=== PATIENT | male | born 1945 | race Caucasian/White ===

== ENCOUNTER 2018-05-10 17:57 | Emergency (ER) | payer MEDICARE ==
[2018-05-10 19:15] LABS: #Basophils 0.1 thou/uL (0.0-0.2); #Monocytes 0.4 thou/uL (0.11-0.59); #Neutrophils 9.9 thou/uL (1.40-6.50); %Basophils 0.5 % (0.0-1.0); %Eosinophils 0.1 % (0.0-10.0); %Monocytes 3.1 % (0.0-10.0); %Neutrophils 87.3 % (42.0-75.0); Mean Corpuscular HGB CONC 32.5 g/dL (32.0-36.0); Mean Corpuscular Hemoglobin 28.5 pg (27.0-31.0); Mean Corpuscular Volume 87.8 fL (78.0-98.0); Mean Platelet Volume 8.2 fL (7.4-10.4); Platelet Count 362 thou/uL (130-400); Red Blood Cell (RBC) Count 4.92 mill/uL (4.70-6.10); White Blood Cell (WBC) Count 11.3 thou/uL (4.8-10.8)
[2018-05-10] MEDS ORDERED: cloNIDine 0.1 MG TAB ONE ×2 (19:31→20:40)
--- NOTE | 2018-05-10 19:37 | CT ---
CT BRAIN NONCONTRAST: DATE: 05/10/2018 TIME: 7:06 p.m. HISTORY: A 72-year-old male with dysarthria, paresthesia of the face, and weakness of the left upper extremity and left lower extremity. This stroke alert protocol report was called STAT by Dr. Luevano to Dr. Peterson at 7:14 p.m. on 9. COMPARISON: 01/16/2016 FINDINGS: No acute intraaxial or extraaxial hemorrhage, mass effect, midline shift, or obstructive hydrocephalu s. Small to moderate sized arachnoid cyst at the left middle cranial fossa. Small, old lacunar infa rction in the right side of the pretty. Asymmetrically smaller right cerebral peduncle compared to lef t. 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 No interval change overall. The calvarium i s intact. IMPRESSION: 1. No acute intracranial findings. 2. Small, old lacunar infarction of the right pretty. 3. 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 4. Small to moderate sized arachnoid cyst in the left middle cranial fossa. CODE CR CHARLENE Barba POS: BASSAM
[2018-05-10 19:41] LABS: ALT (SGPT) 19 U/L (8-55); AST (SGOT) 15 U/L (5-34); Albumin 4.3 g/dL (3.4-4.8); Alkaline Phosphatase 84 U/L (40-150); Anion Gap 18 mmol/L (10-20); BUN (Urea Nitrogen) 18 mg/dL (8.4-25.7); Bilirubin, Total 0.5 mg/dL (0.2-1.2); CK (CPK) 44 U/L (30-200); Calc. Creatinine Clearance 0 mL/min (70-130); Calcium 9.7 mg/dL (7.8-10.44); Carbon Dioxide 20 mmol/L (23-31); Chloride 103 mmol/L (98-107); Estimated GFR-MDRD 59; Globulin 4.2 g/dL (2.4-3.5); Glucose 236 mg/dL (83-110); Potassium 3.8 mmol/L (3.5-5.1); Protein, Total 8.5 g/dL (5.8-8.1); Sodium 137 mmol/L (136-145)
== END 2018-05-10 21:49 | disposition home or self-care (01) ==
LOC: ERS 17:57
DX: I10 Essential (primary) hypertension (principal); E11.9 Type 2 diabetes mellitus without complications
CPT/HCPCS: 36415; 36416; 70450; 80053; 82550; 84484; 85025; 93005